=== PATIENT | male | born 1990 | race Caucasian/White ===

== ENCOUNTER 2019-02-25 11:54 | Emergency (ER) | payer OTHER ==
[2019-02-25 12:07] VITALS: BP 125/79
--- NOTE | 2019-02-25 13:37 | UC ---
Skin Complaint HPI - HPI Summary HPI Summary: Patient has a red circular rash on his right hand over the past couple weeks. He applied Neosporin, another medication, and Motrin without improvement. - History of Current Complaint Chief Complaint: UCSkin Time Seen by Provider: 02/25/19 13:32 Stated Complaint: RED DOT ON HAND Hx Obtained From: Patient Onset/Duration: Gradual Onset Skin Exposure Onset/Duration: Weeks Ago Timing: Constant Onset Severity: Moderate Current Severity: Mild Pain Intensity: 0 Location: Hand (Right) Character: Redness, Raised - The circular edges are raised. Aggravating Factor(s): Nothing Alleviating Factor(s): Nothing Associated Signs & Symptoms: Positive: Negative - Allergy/Home Medications Allergies/Adverse Reactions: Allergies Allergy/AdvReac Type Severity Reaction Status Date / Time No Known Allergies Allergy Verified 02/25/19 12:00 Home Medications: Home Medications Dextroamphetamine/Amphetamine [Adderall 30 mg Tablet] 30 mg PO DAILY PRN [History Confirmed 02/25/19] Vortioxetine Hydrobromide [Brintellix] 5 mg PO DAILY 02/25/19 [History Confirmed 02/25/19] PMH/Surg Hx/FS Hx/Imm Hx Previously Healthy: Yes - Surgical History Surgical History: Yes Surgery Procedure, Year, and Place: APPENDECTOMY; TANTILIUM RING PLACEMENT - 1.5T ONLY PER DR OTTO ( SEE IN PT'S EMR -OTHER FACILTY REPORTS); BIOPSIES OF Lt EYE - Family History Known Family History: Positive: Non-Contributory - Social History Lives: With Family Alcohol Use: Occasionally Substance Use Type: None Smoking Status (MU): Never Smoked Tobacco Review of Systems All Other Systems Reviewed And Are Negative: Yes Skin: Positive: Rash - Circular rash on the dorsum of his right hand which she' s had for 1-2 weeks. Is Patient Immunocompromised?: No Physical Exam Triage Information Reviewed: Yes Appearance: Well-Appearing, No Pain Distress, Well-Nourished Vital Signs: Initial Vital Signs Temp 98.3 F 02/25/19 12:02 Pulse 73 02/25/19 12:02 Resp 16 02/25/19 12:02 BP 125/79 02/25/19 12:02 Pulse Ox 99 02/25/19 12:02 Vital Signs Reviewed: Yes Musculoskeletal Exam: Normal Neurological Exam: Normal Psychological Exam: Normal Skin: Positive: Rashes, Other - Reddened circular rash dorsum of right hand with definite raised edges, measures approximately 8 mm in diameter. Course/Dx - Course Course Of Treatment: Patient is comfortable here. I believe this is ringworm. 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 - Diagnoses Provider Diagnosis: Ringworm Discharge ED - Sign-Out/Discharge Documenting (check all that apply): Patient Departure All imaging exams completed and their final reports reviewed: No Studies - Discharge Plan Condition: Good Disposition: HOME Prescriptions: Ketoconazole 2 % CREAM (NF) [Nizoral 2% CREAM (NF)] 1 applic TOPICAL BID 7 Days #1 tube Patient Education Materials: Tinea Corporis (ED) [facility]errals: [facility] [Outside] No Primary Care Phys,NOPCP [Primary Care Provider] - Additional Instructions: Keep the area covered, follow-up with [facility] in one week if no improvement. - Billing Disposition and Condition Condition: GOOD Disposition: Home
== END 2019-02-25 13:45 | disposition home or self-care (01) ==
LOC: UCEAST 11:54
DX: B35.2 Tinea manuum (principal); Z79.899 Other long term (current) drug therapy
CPT/HCPCS: 99212; G0463

== ENCOUNTER 2019-07-29 11:13 | Emergency (ER) | payer OTHER ==
[2019-07-29 11:40] VITALS: BP 144/87
--- NOTE | 2019-07-29 12:09 | UC ---
Throat Pain/Nasal Ignacio HPI - HPI Summary HPI Summary: 29 yo male with sore throat x 2 days no f/c no KOHLER or myalgia no URI symptoms no n/v/d - History of Current Complaint Chief Complaint: UCGeneralIllness Stated Complaint: SORE THROAT Time Seen by Provider: 07/29/19 11:16 Hx Obtained From: Patient Onset/Duration: Gradual Onset, Lasting Days Severity: Mild Pain Intensity: 4 Pain Scale Used: 0-10 Numeric Cough: None Associated Signs & Symptoms: Positive: Negative - Epiglottits Risk Factors Epiglottis Risk Factors: Negative - Allergies/Home Medications Allergies/Adverse Reactions: Allergies Allergy/AdvReac Type Severity Reaction Status Date / Time No Known Allergies Allergy Verified 07/14/19 14:32 Home Medications: Home Medications Dextroamphetamine/Amphetamine [Adderall 30 mg Tablet] 30 mg PO DAILY PRN [History Confirmed 02/25/19] Dextroamphetamine/Amphetamine [Adderall Xr 30 mg Capsule] 30 mg PO DAILY [History Confirmed 07/29/19] PMH/Surg Hx/FS Hx/Imm Hx Previously Healthy: Yes - Surgical History Surgical History: Yes Surgery Procedure, Year, and Place: APPENDECTOMY; TANTILIUM RING PLACEMENT - 1.5T ONLY PER DR OTTO ( SEE IN PT'S EMR -OTHER FACILTY REPORTS); BIOPSIES OF Lt EYE - Family History Known Family History: Positive: Hypertension - Social History Alcohol Use: Rare Substance Use Type: None Smoking Status (MU): Never Smoked Tobacco Review of Systems All Other Systems Reviewed And Are Negative: Yes Constitutional: Positive: Negative Skin: Positive: Negative Eyes: Positive: Negative ENT: Positive: Sore Throat Respiratory: Positive: Negative Cardiovascular: Positive: Negative Gastrointestinal: Positive: Negative Genitourinary: Positive: Negative Motor: Positive: Negative Neurovascular: Positive: Negative Musculoskeletal: Positive: Negative Neurological/Mental Status: Positive: Negative Psychological: Positive: Negative Physical Exam Triage Information Reviewed: Yes Appearance: Well-Appearing, No Pain Distress, Well-Nourished Vital Signs: Initial Vital Signs Temp 98.8 F 07/29/19 11:31 Pulse 86 07/29/19 11:31 Resp 16 07/29/19 11:31 BP 144/87 07/29/19 11:31 Pulse Ox 98 07/29/19 11:31 Vital Signs Reviewed: Yes Eyes: Positive: Conjunctiva Clear ENT: Positive: Hearing grossly normal, Pharyngeal erythema, TMs normal, Uvula midline. Negative: Nasal congestion, Nasal drainage, Tonsillar swelling, Tonsillar exudate, Trismus, Muffled voice, Hoarse voice, Sinus tenderness Neck: Positive: Supple, Nontender, Enlarged Nodes @ - mild ant cerv Respiratory: Positive: Lungs clear, Normal breath sounds, No respiratory distress, No accessory muscle use Cardiovascular: Positive: RRR, No Murmur Abdomen Description: Positive: Nontender, No Organomegaly Bowel Sounds: Positive: Present Musculoskeletal: Positive: ROM Intact, No Edema Neurological: Positive: Alert Psychological Exam: Normal Skin Exam: Normal Throat Pain/Nasal Course/Dx - Differential Dx/Diagnosis Provider Diagnosis: Pharyngitis Discharge ED - Sign-Out/Discharge Documenting (check all that apply): Patient Departure All imaging exams completed and their final reports reviewed: No Studies - Discharge Plan Condition: Stable Disposition: HOME Patient Education Materials: Pharyngitis (ED) Referrals: [facility] [Outside] - If Needed Additional Instructions: your strep test was negative recheck for new or worsening symptoms recheck in 4-5 days if not improved - Billing Disposition and Condition Condition: STABLE Disposition: Home
== END 2019-07-29 12:18 | disposition home or self-care (01) ==
LOC: UCEAST 11:13
DX: J02.9 Acute pharyngitis, unspecified (principal)
CPT/HCPCS: 87651; 99211; G0463